=== PATIENT | female | born 1990 | race American Indian/Alaskan Native ===

== ENCOUNTER 2016-08-19 20:44 | Emergency (ER) | payer MEDICAID ==
[2016-08-19 21:57] LABS: Bilirubin,Urine NEG (Negative); Blood,Urine NEG (Negative); Ketones,Urine NEG (Negative); Leukocyte Esterase,Urine SM (Negative); Mucus,Urine FEW /HPF; Nitrite,Urine NEG (Negative); Protein,Urine <15 mg/dL mg/dL (Negative); Urobilinogen,Urine < 2.0 mg/dL (<2.0)
--- NOTE | 2016-08-20 01:03 | Emergency Department Report ---
ED Abdominal Pain HPI - General Chief Complaint: Abdominal Pain Stated Complaint: ABD PAIN,PREG UNK WKS Time Seen by Provider: 08/20/16 00:57 Source: patient Mode of arrival: Ambulatory Limitations: No Limitations - History of Present Illness Initial Comments: Patient is a 26-year-old female with no past medical history presenting with 1 week history of abdominal pain. Patient reports the pain as intermittent cramping of her lower abdomen associated with increased urinary frequency. Patient also reports she is by positive UPT today. Otherwise no vaginal bleeding no fluid loss. Patient denies fevers, chills, headache, nausea , vomiting, diarrhea, shortness of breath, chest pain, trauma, travel, or sick contacts MD Complaint: abdominal pain, other () -: Gradual, week(s) (1) - Related Data Previous Rx's Medication Instructions Recorded Last Taken Type Nitrofurantoin [place]/M-Cryst 100 mg PO Q12HR #14 capsule 08/20/16 Unknown Rx [Macrobid CAP] Allergies Allergy/AdvReac Type Severity Reaction Status Date / Time No Known Allergies Allergy Verified 08/19/16 21:08 ED Review of Systems ROS: Stated complaint: ABD PAIN,PREG UNK WKS Other details as noted in HPI Comment: All other systems reviewed and negative ED Past Medical Hx - Past Medical History Previous Medical History?: No - Surgical History Past Surgical History?: No - Social History Smoking Status: Current Every Day Smoker Substance Use Type: Alcohol - Medications Home Medications: Home Medications Medication Instructions Recorded Confirmed Last Taken Type Nitrofurantoin [place]/M-Cryst 100 mg PO Q12HR #14 capsule 08/20/16 Unknown Rx [Macrobid CAP] ED Physical Exam - General Limitations: No Limitations General appearance: alert, in no apparent distress - Head Head exam: Present: atraumatic, normocephalic - Eye Eye exam: Present: normal appearance - ENT ENT exam: Present: mucous membranes moist - Neck Neck exam: Present: normal inspection - Respiratory Respiratory exam: Present: normal lung sounds bilaterally. Absent: respiratory distress - Cardiovascular Cardiovascular Exam: Present: regular rate, normal rhythm. Absent: systolic murmur, diastolic murmur, rubs, gallop - GI/Abdominal GI/Abdominal exam: Present: soft, tenderness (suprapubic), normal bowel sounds. Absent: distended, guarding, rebound, rigid, pulsatile mass, hernia - Rectal Rectal exam: Present: deferred - External exam: Present: normal external exam - Extremities Exam Extremities exam: Present: normal inspection - Back Exam Back exam: Present: normal inspection - Neurological Exam Neurological exam: Present: alert, oriented X3 - Psychiatric Psychiatric exam: Present: normal affect, normal mood - Skin Skin exam: Present: warm, dry, intact, normal color. Absent: rash ED Course Vital Signs 08/19/16 21:08 Temperature 98.2 F Pulse Rate 79 Respiratory 18 Rate Blood Pressure 124/71 O2 Sat by Pulse 100 Oximetry ED Medical Decision Making - Radiology Data Radiology results: report reviewed Pelvic US: IUP, 6weeks 4 days - Medical Decision Making Despite negative UTI on UA, will treat for symptomatic UTI with macrobid 300mg BID Counseled patient on smoking cessation and vitamins daily. Pt understood Critical care attestation.: If time is entered above; I have spent that time in minutes in the direct care of this critically ill patient, excluding procedure time. ED Disposition Clinical Impression: Abdominal pain during , UTI (urinary tract infection) during Disposition: DISCHARGED TO HOME OR SELFCARE Is pt being admited?: No Condition: Stable Instructions: Urinary Tract Infection in Women (ED), Abdominal Pain in (ED) Prescriptions: Nitrofurantoin [place]/M-Cryst [Macrobid CAP] 100 mg PO Q12HR #14 capsule Referrals: PRIMARY CARE, [Primary Care Provider] - 3-5 Days Forms: Work/School Release Form(ED)
--- NOTE | 2016-08-20 02:41 | Ultrasound Report ---
FINAL REPORT PROCEDURE: US OB TRANSVAGINAL TECHNIQUE: Real-time transabdominal and transvaginal sonography of the uterus, placenta, amniotic fluid, adnexa, and fetus was performed with image documentation. Measurements were obtained to determine age/size. M-mode Doppler was used to document heartbeat. CPT 15160 and 94126 HISTORY: threated ab COMPARISON: No prior studies are available for comparison. FINDINGS: ADDITIONAL GESTATION: None. CRL: 7 mm, which corresponds to a gestational age of: 6 weeks, 4 days. Yolk Sac: Normal. Embryonic Cardiac Activity: 126 beats per minute Gestational Sac: There is a small subchorionic bleed Amniotic fluid: Normal. Cervix: Normal. Right Ovary: Normal. Left Ovary: There are multiple small cysts on the left ovary the largest measuring 28 millimeters. Estimated delivery date: 04/11/2017 Uterus and adnexa: As above IMPRESSION: 1. Single live intrauterine gestation at approximately 6 weeks, 4 days. 2. EDC by US 04/11/2017 3. Complete anatomic survey at 18-20 weeks suggested.
--- NOTE | 2016-08-20 02:42 | Ultrasound Report ---
FINAL REPORT PROCEDURE: US OB transabdominal and TRANSVAGINAL TECHNIQUE: Real-time transabdominal and transvaginal sonography of the uterus, placenta, amniotic fluid, adnexa, and fetus was performed with image documentation. Measurements were obtained to determine age/size. M-mode Doppler was used to document heartbeat. CPT 59499 and 77979 HISTORY: threated ab COMPARISON: No prior studies are available for comparison. FINDINGS: ADDITIONAL GESTATION: None. CRL: 7 mm, which corresponds to a gestational age of: 6 weeks, 4 days. Yolk Sac: Normal. Embryonic Cardiac Activity: 126 beats per minute Gestational Sac: There is a small subchorionic bleed Amniotic fluid: Normal. Cervix: Normal. Right Ovary: Normal. Left Ovary: There are multiple small cysts on the left ovary the largest measuring 28 millimeters. Estimated delivery date: 04/11/2017 Uterus and adnexa: As above IMPRESSION: 1. Single live intrauterine gestation at approximately 6 weeks, 4 days. 2. EDC by US 04/11/2017 3. Complete anatomic survey at 18-20 weeks suggested.
[2016-08-20 03:25] VITALS: BP 131/76
== END 2016-08-20 03:25 | disposition home or self-care (01) ==
LOC: ED 20:44
DX: O23.41 Unspecified infection of urinary tract in pregnancy, first trimester (principal); R10.30 Lower abdominal pain, unspecified; F17.200 Nicotine dependence, unspecified, uncomplicated; Z3A.01 Less than 8 weeks gestation of pregnancy
CPT/HCPCS: 76801; 76817; 81001; 81025